=== PATIENT | female | born 1985 | race Two or more races ===

== ENCOUNTER 2021-06-14 12:10 | Outpatient (CLI) | payer BC, SELFPAY ==
--- NOTE | ~2021-06-14 | XR_ITS ---
EXAMINATION: XR lumbar spine 2-3V, XR pelvis 1-2V DATE: 06/14/2021 12:47 INDICATION: Right flank pain and iliac pain radiating down the right leg TECHNIQUE: 1. Anteroposterior and lateral views of the lumbar spine, and cone-down lateral view of the lumbosacr al junction were obtained. 2. AP view of the pelvis was obtained. COMPARISON: None. FINDINGS: Alignment is normal. Vertebral body and disc heights are normal. Lumbar facet joints are normal. Sacr um and bilateral sacroiliac joints are normal. Bilateral hip joints are normal. No suspected avascula r necrosis. Soft tissues are unremarkable. IMPRESSION: 1. Negative lumbar spine and pelvis radiographs. Reviewed, dictated and finalized at location A. ANCE LEARNING UNIT LEADER IMPRESSION: 1. Negative lumbar spine and pelvis radiographs.
[2021-06-14 12:44] LABS: Basophils Absolute Auto 0.03 K/mm3 (0.00-0.10); Basophils Percent Auto 0.4 % (0.0-1.0); Eosinophils Absolute Auto 0.06 K/mm3 (0.02-0.50); Eosinophils Percent Auto 0.8 % (1.0-6.0); Hemoglobin 13.1 g/dL (12.0-15.0); Immature Granulocyte Absolute 0.03 K/mm3 (0.00-0.00); Immature Granulocyte Percent A 0.4 % (0.0-0.0); Lymphocytes Absolute Auto 2.77 K/mm3 (1.10-4.50); Lymphocytes Percent Auto 35.3 % (18.0-42.0); Mean Corpuscular Hemoglobin 26.8 pg (27.0-31.0); Mean Platelet Volume 9.8 fl (9.2-11.8); Monocytes Absolute Auto 0.77 K/mm3 (0.10-0.90); Monocytes Percent Auto 9.8 % (2.0-11.0); Neutrophils Absolute Auto 4.2 K/mm3 (1.7-7.2); Neutrophils Percent Auto 53.3 % (50.0-70.0); Platelet Count Result 347 K/mm3 (150-420); Red Blood Count 4.88 M/mm3 (4.20-5.40); Red Cell Distribution Width 12.8 % (11.6-14.4); White Blood Count 7.9 K/mm3 (4.8-10.8)
[2021-06-14 13:14] LABS: Alanine Aminotransferase 14 U/L (14-59); Albumin Level 3.8 g/dL (3.4-5.0); Alkaline Phosphatase 47 U/L (46-116); Anion Gap 11 mmol/L (8-16); Aspartate Amino Transferase 26 U/L (15-37); Bilirubin,Total 0.2 mg/dL (0.00-1.00); Blood Urea Nitrogen 10 mg/dL (7-18); Calcium 8.7 mg/dL (8.5-10.1); Carbon Dioxide 25 mmol/L (21-32); Chloride 103 mmol/L (98-108); Estimated Glomerular Filt Rate > 60; Glucose 88 mg/dL (70-99); Osmolality Calculated 286 mOsm/kg (285-295); Potassium 4.3 mmol/L (3.5-5.1); Sodium 139 mmol/L (136-145); Total Protein 7.8 g/dL (6.4-8.2)
[2021-06-14 13:19] LABS: CRP < 0.5 mg/dL (0.0-0.9)
== END 2021-06-14 12:11 | disposition home or self-care (01) ==
PROVIDERS: PCP Internal Medicine; Visit Provider Internal Medicine
DX: R10.9 Unspecified abdominal pain (principal)
CPT/HCPCS: 36415; 72100; 72170; 80053; 85025; 86140

== ENCOUNTER 2021-06-23 07:36 | Outpatient (CLI) | payer BC, SELFPAY ==
--- NOTE | ~2021-06-23 | CT_ITS ---
EXAMINATION: CT abdomen pelvis wo con DATE: 06/23/2021 09:55 INDICATION: Right flank pain. Hematuria. TECHNIQUE: Computed tomography (CT) of the abdomen and pelvis was performed without intravenous contr ast. Automated exposure control and iterative reconstruction technique were employed. The dose-length product was 168.55 mGy-cm. COMPARISON: None. FINDINGS: The visualized portions of the lung bases are clear without pneumonia or pleural effusion. The heart size is normal. No pericardial effusion. There is an 8 mm cyst in the liver. The gallbladde r, spleen, pancreas, adrenal glands, and kidneys are normal. There are no dilated loops of bowel. The appendix is normal. There are no pathologically enlarged lymph nodes. There is no free intraperitone al fluid. There is mild lumbar spondylosis. IMPRESSION: 1. No urolithiasis. Reviewed, dictated and finalized at location A. EMS INTEGRATION ENGINEER IMPRESSION: 1. No urolithiasis.
[2021-06-23 09:46] LABS: SARS-CoV-2 RNA PCR Negative (Negative)
== END 2021-06-23 07:37 | disposition home or self-care (01) ==
PROVIDERS: PCP Internal Medicine; Visit Provider Internal Medicine
DX: R10.9 Unspecified abdominal pain (principal); R31.9 Hematuria, unspecified; Z20.822 Contact with and (suspected) exposure to COVID-19
CPT/HCPCS: 74176; C9803; U0003; U0005

== ENCOUNTER 2022-02-02 10:38 | Outpatient (CLI) | payer OTHER, SELFPAY ==
--- NOTE | ~2022-02-02 | US_ITS ---
EXAMINATION: US pelvic complete DATE: 02/02/2022 11:06 INDICATION: Right lower quadrant pain. Back pain. Comparison:No prior studies for comparison. TECHNIQUE: Multiple transabdominal and endovaginal sonographic images of the pelvis performed. FINDINGS: The uterus measures 7.3 x 4.6 x4 cm. The endometrial complex measures 7 mm. The right ovary measures 3.5 x 1.5 x 4.2 cm and the left ovary measures 3.5 x 2.6 x 1.8 cm. There ar e small follicles in each ovary. Normal doppler signal in both ovaries. There is no free fluid in the pelvis. There are no abnormal masses seen on either side. IMPRESSION: 1. Unremarkable pelvic ultrasound. Reviewed, dictated and finalized at location A.
--- NOTE | ~2022-02-02 | XR_ITS ---
XR shoulder RT min 2V DATE: 02/02/2022 11:19 INDICATION: Right shoulder pain for 6 months. No known injury. TECHNIQUE: 4 views COMPARISON: None FINDINGS: No fracture or dislocation, periosteal reaction or bone destruction or abnormal soft tissue calcification. IMPRESSION: Negative right shoulder Reviewed, dictated and finalized at location A. IMPRESSION: Negative right shoulder
--- NOTE | ~2022-02-02 | XR_ITS ---
XR_CERV2-3V_CR 02/02/2022 11:19 Indication: Right shoulder pain Procedure: 3 views of the cervical spine Comparison: No prior studies for comparison. Findings: Vertebral body heights are preserved. There is mild disc narrowing at C5-6. No prevertebral soft tissue swelling. There is mild uncinate degenerative change at C4-5 and C5-6. Lung apices are u nremarkable. Odontoid process within normal limits. Impression: 1: Mild cervical spondylosis. Reviewed, dictated and finalized at location A. Impression: 1: Mild cervical spondylosis.
== END 2022-02-02 10:39 | disposition home or self-care (01) ==
LOC: CHSIMG 10:39
PROVIDERS: PCP Internal Medicine; Visit Provider Internal Medicine
DX: N83.201 Unspecified ovarian cyst, right side (principal); M25.511 Pain in right shoulder
CPT/HCPCS: 72040; 73030; 76856

== ENCOUNTER 2023-03-09 14:09 | Outpatient (CLI) | payer BC, SELFPAY ==
[2023-03-09 14:28] LABS: Basophils Absolute Auto 0.03 K/mm3 (0.00-0.10); Basophils Percent Auto 0.3 % (0.0-1.0); Eosinophils Absolute Auto 0.03 K/mm3 (0.02-0.50); Eosinophils Percent Auto 0.3 % (1.0-6.0); Hemoglobin 12.1 g/dL (12.0-15.0); Immature Granulocyte Absolute 0.05 K/mm3 (0.00-0.00); Immature Granulocyte Percent A 0.5 % (0.0-0.0); Lymphocytes Absolute Auto 2.69 K/mm3 (1.10-4.50); Lymphocytes Percent Auto 25.8 % (18.0-42.0); Mean Corpuscular HGB Conc 33.6 g/dL (32.0-36.0); Mean Corpuscular Hemoglobin 27.9 pg (27.0-31.0); Mean Corpuscular Volume 82.9 fL (78.0-102.0); Mean Platelet Volume 9.8 fl (9.2-11.8); Monocytes Absolute Auto 0.76 K/mm3 (0.10-0.90); Monocytes Percent Auto 7.3 % (2.0-11.0); Neutrophils Absolute Auto 6.9 K/mm3 (1.7-7.2); Neutrophils Percent Auto 65.8 % (50.0-70.0); Platelet Count Result 337 K/mm3 (150-420); Red Blood Count 4.34 M/mm3 (4.20-5.40); White Blood Count 10.4 K/mm3 (4.8-10.8)
[2023-03-09 17:27] LABS: HIV 1 P24 AG Negative (Negative); HIV 1/2 AB Negative (Negative)
[2023-03-13 15:49] LABS: RPR Screen Non-Reactive (Non-Reactive)
[2023-03-13 18:11] LABS: Hepatitis B Surface Antigen Nonreactive (Nonreactive)
[2023-03-14 18:01] LABS: Rubella IgG Antibody 7.12 Index
[2023-03-21 13:01] LABS: CF Result NEGATIVE (NEGATIVE); Ethnicity NG
[2023-03-22 15:36] LABS: SMA Results Received Yes
== END 2023-03-09 14:10 | disposition home or self-care (01) ==
LOC: CHSLAB 14:10
PROVIDERS: PCP Internal Medicine; Visit Provider Student in an Organized Health Care Education/Training Program
DX: N94.89 Other specified conditions associated with female genital organs and menstrual cycle (principal); R82.90 Unspecified abnormal findings in urine
CPT/HCPCS: 36415; 81220; 81329; 84702; 85025; 86592; 86644; 86747; 86762; 86787; 86850; 86900; 86901; 87077; 87086; 87088; 87186; 87340; 87806

== ENCOUNTER 2023-08-03 07:23 | Outpatient (CLI) | payer BC, SELFPAY ==
[2023-08-03 08:34] LABS: Basophils Absolute Auto 0.04 K/mm3 (0.00-0.10); Basophils Percent Auto 0.4 % (0.0-1.0); Eosinophils Absolute Auto 0.02 K/mm3 (0.02-0.50); Eosinophils Percent Auto 0.2 % (1.0-6.0); Hematocrit 32.7 % (35.0-49.0); Hemoglobin 10.4 g/dL (12.0-15.0); Immature Granulocyte Absolute 0.21 K/mm3 (0.00-0.00); Lymphocytes Absolute Auto 1.78 K/mm3 (1.10-4.50); Lymphocytes Percent Auto 16.9 % (18.0-42.0); Mean Corpuscular HGB Conc 31.8 g/dL (32.0-36.0); Mean Corpuscular Hemoglobin 25.6 pg (27.0-31.0); Mean Corpuscular Volume 80.5 fL (78.0-102.0); Mean Platelet Volume 9.9 fl (9.2-11.8); Monocytes Absolute Auto 0.74 K/mm3 (0.10-0.90); Neutrophils Absolute Auto 7.8 K/mm3 (1.7-7.2); Neutrophils Percent Auto 73.5 % (50.0-70.0); Platelet Count Result 282 K/mm3 (150-420); Red Blood Count 4.06 M/mm3 (4.20-5.40); Red Cell Distribution Width 13.9 % (11.6-14.4); White Blood Count 10.6 K/mm3 (4.8-10.8)
[2023-08-03 09:49] LABS: Glucose 1 Hour PP 50gm Dose 157 mg/dL (70-130); HIV 1 P24 AG Negative (Negative); HIV 1/2 AB Negative (Negative)
== END 2023-08-03 07:24 | disposition home or self-care (01) ==
PROVIDERS: PCP Internal Medicine; Visit Provider Obstetrics & Gynecology
DX: Z34.90 Encounter for supervision of normal pregnancy, unspecified, unspecified trimester (principal)
CPT/HCPCS: 36415; 82947; 85025; 87806

== ENCOUNTER 2023-08-13 07:28 | Outpatient (CLI) | payer BC, SELFPAY ==
[2023-08-13 08:07] LABS: Glucose Fasting Gestational 80 mg/dL (>/=95)
[2023-08-13 09:13] LABS: Glucose 1 Hour Gest 182 mg/dL (70-130)
[2023-08-13 09:59] LABS: Glucose 2 Hour Gest 174 mg/dL (<155)
[2023-08-13 11:11] LABS: Glucose 3 Hour Gest 159 mg/dL (>/=140)
== END 2023-08-13 07:29 | disposition home or self-care (01) ==
LOC: CHSLAB 07:30
PROVIDERS: PCP Internal Medicine; Visit Provider Obstetrics & Gynecology
DX: R73.09 Other abnormal glucose (principal)
CPT/HCPCS: 36415; 82951; 82952

== ENCOUNTER 2023-09-11 17:55 | Outpatient (CLI) | payer BC, SELFPAY ==
[2023-09-11] VITALS (15 sets, daily range): BP systolic 124–140; BP diastolic 75–82; PULSE 58–72; O2SAT 98–100; BMI 27.3
[2023-09-11 18:33] LABS: Basophils Percent Auto 0.4 % (0.2-1.2); Eosinophils Absolute Auto 0.1 K/mm3 (0-0.3); Eosinophils Percent Auto 0.6 % (0-4.4); Hematocrit 34.5 % (37.0-47.0); Hemoglobin 10.6 g/dL (12.0-15.0); Immature Granulocyte Percent A 0.9 % (0-0.5); Lymphocytes Absolute Auto 1.95 K/mm3 (0.9-3.2); Lymphocytes Percent Auto 17.4 % (18.3-44.2); Mean Corpuscular HGB Conc 30.7 g/dl (32-36); Mean Corpuscular Volume 78.1 fl (80-100); Mean Platelet Volume 11.1 fl (7.4-10.4); Monocytes Absolute Auto 0.8 K/mm3 (0.1-0.6); Monocytes Percent Auto 7.3 % (2.6-8.5); Neutrophils Absolute Auto 8.2 K/mm3 (1.3-6.7); Neutrophils Percent Auto 73.4 % (45.5-73.1); Platelet Count Result 233 k/mm3 (150-375); Red Blood Count 4.42 M/mm3 (4.2-5.4); Red Cell Distribution Width 15.2 % (11.5-14.5); White Blood Count 11.2 K/mm3 (4.5-10.0)
[2023-09-11 18:44] LABS: Alanine Aminotransferase 14 U/L (6-35); Albumin Level 3.3 g/dL (3.5-5.1); Alkaline Phosphatase 183 U/L (38-126); Anion Gap 6 mmol/L (8-16); Aspartate Amino Transferase 20 U/L (14-36); Bilirubin,Total 0.2 mg/dL (0.2-1.3); Blood Urea Nitrogen 7 mg/dL (7-17); Calcium 8.3 mg/dL (8.4-10.2); Carbon Dioxide 20 mmol/L (22-30); Chloride 108 mmol/L (98-107); Estimated Glomerular Filt Rate > 60; Glucose 103 mg/dL (65-110); Potassium 4.2 mmol/L (3.4-5.0); Sodium 134 mmol/L (137-145); Uric Acid 4.5 mg/dL (2.5-7.5)
[2023-09-11 18:47] LABS: Creatinine Urine 148.5 mg/dL; Total Protein Urine Random 71 mg/dL; Ur Ttl Prot Creatinine Ratio 0.48 mg/mg (0-0.20)
[2023-09-11 18:53] LABS: Appearance Urine Turbid (Clear); Bacteria Urine 4+ /hpf; Bilirubin Urine Negative (Negative); Blood Urine 1+ (Negative); Color Urine Yellow (Yellow); Glucose Urine UA Negative (Negative); Ketones Urine Negative (Negative); Leukocyte Esterase Ur 2+ LEU/UL (Negative); Need Manual Microscopic Reviewed; Nitrate Urine Negative (Negative); Protein Urine 2+ mg/dL (Negative); Squamous Epithelial Cell Urine Many /hpf (Few); Urobilinogen Urine 0.2 mg/dL (<2.0); WBC Urine >100 /hpf; pH Urine 6.5 (5.0-9.0)
[2023-09-11 18:55] LABS: Add Urine Microscopic? YES
--- NOTE | 2023-09-11 19:16 | PC.NURSE ---
Called Dr. Acevedo with update on pt, blood pressure, labs, and tracing. Orders received to schedule induction at 37 weeks and discharge pt with instructions when to return to the unit.
--- NOTE | 2023-09-11 19:30 | PC.NURSE ---
Discussed whether to keep next scheduled NST tomorrow, orders received to schedule NST Saturday or Saturday of this week.
== END 2023-09-11 19:36 | disposition home or self-care (01) ==
LOC: ANHOBOP 17:58 → ANHOBPP 17:58
PROVIDERS: PCP Internal Medicine; Visit Provider Obstetrics & Gynecology
DX: O13.9 Gestational [pregnancy-induced] hypertension without significant proteinuria, unspecified trimester (principal)
CPT/HCPCS: 36415; 59025; 80053; 81001; 82570; 84156; 84550; 85025; 87086; 99199

== ENCOUNTER 2023-09-14 10:27 | Outpatient (RCR) | payer BC, SELFPAY ==
[2023-08-19 11:20] VITALS: BP 120/71; PULSE 75
[2023-08-22 09:02] VITALS: BP 109/73; PULSE 80
[2023-08-27 10:08] VITALS: BP 113/79; PULSE 72
[2023-08-30 11:41] VITALS: BP 131/82; PULSE 75
[2023-09-03 16:27] VITALS: BP 130/81; PULSE 79
[2023-09-05 15:57] VITALS: BP 126/87; PULSE 75
[2023-09-09 15:54] VITALS: BP 129/86; PULSE 70
[2023-09-14 11:06] VITALS: BP 132/80; PULSE 71
== END 2023-11-17 23:59 | disposition home or self-care (01) ==
LOC: ANHOBOP 10:27
PROVIDERS: PCP Internal Medicine; Visit Provider Obstetrics & Gynecology
DX: O24.410 Gestational diabetes mellitus in pregnancy, diet controlled (principal); Z3A.33 33 weeks gestation of pregnancy; Z3A.34 34 weeks gestation of pregnancy; Z3A.35 35 weeks gestation of pregnancy; Z3A.36 36 weeks gestation of pregnancy
CPT/HCPCS: 59025

== ENCOUNTER 2023-09-16 16:54 | Inpatient (IN) | payer BC, SELFPAY ==
[2023-09-16] VITALS (15 sets, daily range): BP systolic 106–171; BP diastolic 69–98; PULSE 60–92; TEMP 36.4; BMI 27.3
[2023-09-16 17:50] LABS: Basophils Percent Auto 0.4 % (0.2-1.2); Eosinophils Percent Auto 0.3 % (0-4.4); Hematocrit 32.4 % (37.0-47.0); Immature Granulocyte Absolute 0.19 K/mm3 (0.00-0.031); Immature Granulocyte Percent A 1.9 % (0-0.5); Lymphocytes Absolute Auto 1.67 K/mm3 (0.9-3.2); Lymphocytes Percent Auto 16.5 % (18.3-44.2); Mean Corpuscular HGB Conc 30.9 g/dl (32-36); Mean Corpuscular Hemoglobin 24.2 pg (26-34); Mean Corpuscular Volume 78.5 fl (80-100); Mean Platelet Volume 11.6 fl (7.4-10.4); Monocytes Absolute Auto 1.1 K/mm3 (0.1-0.6); Monocytes Percent Auto 10.4 % (2.6-8.5); Neutrophils Absolute Auto 7.2 K/mm3 (1.3-6.7); Neutrophils Percent Auto 70.5 % (45.5-73.1); Nucleated Red Blood Cells Perc 0.3 % (0.0-0.2); Platelet Count Result 221 k/mm3 (150-375); Red Blood Count 4.13 M/mm3 (4.2-5.4); Red Cell Distribution Width 15.9 % (11.5-14.5); White Blood Count 10.2 K/mm3 (4.5-10.0)
[2023-09-16] MEDS: DINOPROSTONE 10 MG VAG INSERT VAGINAL (17:51)
--- NOTE | 2023-09-16 17:57 | LDADM ---
This patient, Alis Adan, was admitted to Labor/Delivery/Recovery 108 on 09/16/23 at 16:54. Plans for labor, pain management and were discussed with patient. Patient/family oriented to hospital policies and general routines including ID bracelet, bed and alarms, visiting hours, pain management, procedures, bathroom and other care routines, personal items, smoking policy, room service/diet and guest tray routines, security routines, and visiting hours. Patient/Family are encouraged to report perceived risks to care and to ask questions if they do not understand what they are told or what they should do. See OBIX for further documentation.
[2023-09-16 18:09] LABS: Alanine Aminotransferase 12 U/L (6-35); Albumin Level 2.9 g/dL (3.5-5.1); Alkaline Phosphatase 176 U/L (38-126); Anion Gap 7 mmol/L (8-16); Aspartate Amino Transferase 18 U/L (14-36); Bilirubin,Total 0.2 mg/dL (0.2-1.3); Blood Urea Nitrogen 8 mg/dL (7-17); Calcium 7.8 mg/dL (8.4-10.2); Carbon Dioxide 15 mmol/L (22-30); Chloride 113 mmol/L (98-107); Estimated CRCL calculation 99 ml/min; Estimated Glomerular Filt Rate > 60; Glucose 100 mg/dL (65-110); Potassium 3.6 mmol/L (3.4-5.0); Sodium 135 mmol/L (137-145); Uric Acid 4.1 mg/dL (2.5-7.5)
--- NOTE | 2023-09-16 18:15 | WPDANESEPP ---
Anes - Eval Pre Procedure Procedure: Labor epidural Date/Time: 09/16/23 18:15 Surgeon: Curtis Preop Diagnosis: Abdominal pain with contractions Pre Op Diagnosis: Induction of Labor Patient Data Age: 38 Gender: F Height: 1.6 m Weight: 70 kg Last Vital Signs Pulse 70 09/16/23 18:01 BP 154/98 H 09/16/23 18:01 O2 Del Method Room Air 09/16/23 17:57 Allergies Allergy/AdvReac Type Severity Reaction Status Date / Time norfloxacin Allergy Mild Hives / Verified 09/11/23 19:48 Red Face Home Medications Medication Instructions Recorded Confirmed Type vits no.126-ferrous fum 1 tablet PO DAILY 04/02/23 09/16/23 History 28 mg iron-folic acid 800 mcg tablet (Classic ) aspirin 81 mg tablet,delayed 81 mg PO DAILY 05/02/23 09/16/23 History release (Adult Low Dose Aspirin) Laboratory Tests 09/16/23 09/16/23 17:35 17:53 WBC 10.2 H K/mm3 (4.5-10.0) RBC 4.13 L M/mm3 (4.2-5.4) Hgb 10.0 L g/dL (12.0-15.0) Hct 32.4 L % (37.0-47.0) MCV 78.5 L fl (80-100) MCH 24.2 L pg (26-34) MCHC 30.9 L g/dl (32-36) RDW 15.9 H % (11.5-14.5) Plt Count 221 k/mm3 (150-375) MPV 11.6 H fl (7.4-10.4) Immature Gran % (Auto) 1.9 H % (0-0.5) Neut % (Auto) 70.5 % (45.5-73.1) Lymph % (Auto) 16.5 L % (18.3-44.2) Redwood % (Auto) 10.4 H % (2.6-8.5) Eos % (Auto) 0.3 % (0-4.4) Baso % (Auto) 0.4 % (0.2-1.2) Lymph # (Auto) 1.67 K/mm3 (0.9-3.2) Redwood # (Auto) 1.1 H K/mm3 (0.1-0.6) Eos # (Auto) 0.0 K/mm3 (0-0.3) Baso # (Auto) 0.0 K/mm3 (0.0-0.1) Abs Immat Gran (auto) 0.19 H K/mm3 (0.00-0.031) Absolute Neuts (auto) 7.2 H K/mm3 (1.3-6.7) Absolute Nucleated RBC 0.0 K/mm3 (0.0-0.012) Nucleated RBC % 0.3 H % (0.0-0.2) Sodium 135 L mmol/L (137-145) Potassium 3.6 mmol/L (3.4-5.0) Chloride 113 H mmol/L (98-107) Carbon Dioxide 15 L mmol/L (22-30) Anion Gap 7 L mmol/L (8-16) BUN 8 mg/dL (7-17) Creatinine 0.60 L mg/dL (0.7-1.0) Estim Creat Clear Calc 99 ml/min Estimated GFR > 60 (59 - ) Glucose 100 mg/dL (65-110) Uric Acid 4.1 mg/dL (2.5-7.5) Calcium 7.8 L mg/dL (8.4-10.2) Total Bilirubin 0.2 mg/dL (0.2-1.3) AST 18 U/L (14-36) ALT 12 U/L (6-35) Alkaline Phosphatase 176 H U/L (38-126) Total Protein 6.0 L g/dL (6.3-8.2) Albumin 2.9 L g/dL (3.5-5.1) : gestational age HCG: positive Patient hx anesthesia problems: none Family hx anesthesia problems: none Results Review: All pre-operative results and documents have been reviewed as part of the pre-operative evaluation. [facility] Past Medical History Medical History (Updated 09/16/23 @ 18:16 by Bishnu Chen CRNA) AMA (advanced maternal age) primigravida 35+ Blood glucose abnormal Diet controlled gestational diabetes mellitus (GDM) Overweight (BMI 25.0-29.9) Pre-eclampsia Suppression of menses Family History Family History Father Acute myocardial infarction Social History Social History Smoking status: Never smoker Alcohol intake: former Substance use: never Do You Feel Safe in your Home?: Yes Lack of Transportation: No Lack of Food: Never True Current Housing: I Have Housing Concerned About Future Housing: No Difficulty Paying Gas/Electric Bills: No Difficulty Paying for Meds: No Currently Unemployed: No Education: High School Diploma/GED Difficulty w/ Childcare or Family Care: No Living arrangements: with family Gender identity (if verbalized by the patient): Female Sexual Orientation (if Verbalized by the Patient): Straight or Heterosexual
[2023-09-16 22:05] LABS: Glucose Point of Care 114 mg/dl (65-105)
[2023-09-17] VITALS (227 sets, daily range): BP systolic 85–165; BP diastolic 48–128; PULSE 50–138; RESP 18; TEMP 36.1–37.9; O2SAT 79–100
[2023-09-17 02:19] LABS: Glucose Point of Care 78 mg/dl (65-105)
[2023-09-17] MEDS: ACETAMINOPHEN 500 MG TABLET 1000 MG PO ×3 (02:29→20:10)
[2023-09-17 06:11] LABS: Glucose Point of Care 76 mg/dl (65-105)
[2023-09-17] MEDS: LACTATED RINGERS 1,000 ML 125 ML IV CONT ×2 (06:55→08:10)
[2023-09-17] MEDS: OXYTOCIN 30 UNITS/NS 500 ML 30 UNITS/500 ML BAG 6 UNITS IV CONT (06:55)
--- NOTE | 2023-09-17 07:33 | PM.IMHP ---
H&P: HPI History of Present Illness Date/Time: 09/16/23 13:42 Chief Complaint: medical induction Narrative: Alis is a 38yo @ 37.1wks who presents for medical IOL due to newly diagnosed pre-eclampsia without severe features. She has been undergoing ANT and following with MFM as well. She reports good movement. Irregular contractions. No VB or LOF. Her is complicated by: - AMA; NIPT LR, male; on ASA - A1GDM - Pre-eclampsia w/o severe features Review of Systems Constitutional: Constitutional: Denies chills, Denies fever(s) and Reports headache(s) Eyes: Eyes: Denies change in vision ENT: Denies headache(s) Cardiovascular: Cardiovascular: Denies chest pain and Denies dyspnea Respiratory: Respiratory: Denies dyspnea Genitourinary: Genitourinary: Denies abnormal vaginal bleeding and Denies vaginal discharge Neurologic: Denies headache(s) Psychiatric: Psychiatric: Denies anxiety and Denies depression [facility] Past Medical History Medical History (Updated 09/16/23 @ 18:16 by Bishnu Chen CRNA) AMA (advanced maternal age) primigravida 35+ Blood glucose abnormal Diet controlled gestational diabetes mellitus (GDM) Overweight (BMI 25.0-29.9) Pre-eclampsia Suppression of menses Family History Family History Father Acute myocardial infarction Social History Social History Smoking status: Never smoker Alcohol intake: former Substance use: never Do You Feel Safe in your Home?: Yes Lack of Transportation: No Lack of Food: Never True Current Housing: I Have Housing Concerned About Future Housing: No Difficulty Paying Gas/Electric Bills: No Difficulty Paying for Meds: No Currently Unemployed: No Education: High School Diploma/GED Difficulty w/ Childcare or Family Care: No Living arrangements: with family Gender identity (if verbalized by the patient): Female Sexual Orientation (if Verbalized by the Patient): Straight or Heterosexual Spiritual care concerns: No Meds Home Medications and Allergies Home Medications Medication Instructions Recorded Confirmed Type vits no.126-ferrous fum 1 tablet PO DAILY 04/02/23 09/16/23 History 28 mg iron-folic acid 800 mcg tablet (Classic ) aspirin 81 mg tablet,delayed 81 mg PO DAILY 05/02/23 09/16/23 History release (Adult Low Dose Aspirin) Allergies Allergy/AdvReac Type Severity Reaction Status Date / Time norfloxacin Allergy Mild Hives / Verified 09/11/23 19:48 Red Face Exam Const: General: cooperative, healthy appearing, comfortable and no acute distress Orientation/consciousness: patient oriented x3 Resp: Effort & Inspection: normal respiratory effort Cardio: Rate: regular rate GI: GI Palp: No abdominal tenderness : Other: FHT's: 140's/ mod varghese/ + accels/ occ mild variable decels - cat 2 (reassuring) TOCO: ctxs q3 min Cervix: 2/50/-2 Membranes: AROM, clear 0715 Presentation: cephalic Skin: General skin exam: normal color Neuro: General: patient oriented x3 Extrem: General: normal to inspection Psych: Appearance: grossly normal Affect: normal affect Attitude: cooperative Assessment and Plan Assessment and plan (1) Pre-eclampsia: Qualifiers: Trimester: third trimester Qualified Code(s): O14.93 - Unspecified pre-eclampsia, third trimester Code(s): O14.90 - Unspecified pre-eclampsia, unspecified trimester Status: Acute (2) Diet controlled gestational diabetes mellitus (GDM): Qualifiers: Trimester: third trimester Qualified Code(s): O24.410 - Gestational diabetes mellitus in , diet controlled Code(s): O24.410 - Gestational diabetes mellitus in , diet controlled Status: Acute (3) AMA (advanced maternal age) primigravida 35+: Qualifiers: Tri
[2023-09-17] MEDS: fentaNYL CITRATE INJ (*CRX) 100 MCG/2 ML VIAL IV PUSH (07:45)
[2023-09-17 10:13] LABS: Glucose Point of Care 85 mg/dl (65-105)
--- NOTE | 2023-09-17 11:50 | PM.OBPNLAB ---
Pain Control Date/time seen: 09/17/23 11:50 Pain control: epidural Pelvic Exam Dilation (cm): 5 Effacement (%): 90 station: -2 Amniotic membrane status: Ruptured (AROM, 0715) Contractions Monitor mode: Internal (placed on this exam) Contraction frequency: 2 Contraction pattern: Regular Status status: Category ll Comments: occasional variables; iupc placed on this exam Assessment and Plan Pitocin rate (mU/min): 12 Assessment: induction ongoing Plan: continuous present management Comments: BPs in moderate range; asymptomatic BS controlled Amnio-infusion if variables persist
[2023-09-17 13:22] LABS: Strep Group A RT-PCR NOT DETECTED (Negative)
[2023-09-17 13:34] LABS: Influenza A QL RT-PCR Negative (Negative); Influenza B QL RT-PCR Negative (Negative); SARS-CoV-2 RNA PCR Positive (Negative)
[2023-09-17 14:40] LABS: Rapid Plasma Reagin Non-Reactive (NonReactive)
[2023-09-17 14:46] LABS: Glucose Point of Care 73 mg/dl (65-105)
[2023-09-17] MEDS: DEXTROSE 5%/LACTATED RINGERS 1,000 ML 125 ML (17:20)
--- NOTE | 2023-09-17 17:54 | P.PCNOB_ITS ---
OB - Vaginal Delivery Note Procedure Delivery date: 09/17/23 Events: Gestational Diabetes, Preeclampsia w/o severe features and Other (AMA, COVID) Induction method: Per Misoprostol Protocol Delivery augmentation: Rupture of Membranes and Pitocin Delivery monitor: External FHT and Internal Uterine Route of delivery: vacuum extraction Indication for instrumentation: maternal exhaustion (and severe variables) Laceration Description: Perineal - 1st Degree Delivery repair: vicryl Specimen: Yes (placenta) Quantitative Blood Loss (ml): 300 Anesthesia type: Epidural Disposition: Floor Complications: No immediate complications Baby Date of : 09/17/23 Time of : 17:32 Weeks of gestation at delivery: 37 (.1) gender: Male Weight (pounds): 5 Weight (ounces): 14 presentation: vertex position: Right Occiput Anterior Placenta delivery description: Expressed Cord Vessel Description: 3 Vessels score one minute: 7 score five minutes: 9 Narrative: Alis rapidly progressed to complete dilation and began pushing with good maternal effort. She pushed for approximately 2-1/2 hours and due to maternal exhaustion requested help with delivery. Her blood sugar was also checked at this time and was found to be 55; she was given juice and started on D5 and felt better, but continued to ask for help with delivery. He was also noted to have severe variables with every contraction. She was at 2+ station and risks and benefits were discussed in detail. She agreed and the pediatric team was present in the room. The vacuum was placed at 5:23 p.m., at 5:24 p.m. 1 pull was performed; when she was done pushing the vacuum was released. At 5:26 p.m. the vacuum was once again applied and a pop-off did occur. The head had noted to rotate and had good descent therefore I had her push a couple more cont ractions. At 5:32 p.m. the vacuum was once again applied and the next pull resulted in delivery. No nuchal cord was noted. She easily delivered the 's shoulders and body without complication. The infant did have terminal meconium. The was immediately placed skin to skin and the umbilical cord was doubly clamped and cut. The pediatric team did take the over to the warmer for further intervention and assessment. A segment of the cord was collected for cord gases. The family desired private cord blood collection and that was performed. With Pitocin running and gentle downward traction on the cord, the placenta delivered without complications. Bimanual massage was performed and good uterine tone with minimal bleeding was noted. She was examined and a first-degree perineal laceration was identified. The perineal laceration was repaired in the normal fashion using 2-0 Vicryl. She remained firm with minimal bleeding. Sponge, lap, instrument, and needle counts were correct at the end of the procedure. The infant was taken to the nursery for further assessment. Mom was in the delivery suite in a stable condition. [facility] Delivery Billing Delivery Delivery: Delivery Charge
[2023-09-17 18:13] LABS: Glucose Point of Care 85 mg/dl (65-105)
[2023-09-17 18:13] LABS: Glucose Point of Care 55 mg/dl (65-105)
[2023-09-17] MEDS: OXYTOCIN 30 UNITS/NS 500 ML 30 UNITS/500 ML BAG 125 UNITS IV CONT (18:30)
--- NOTE | 2023-09-17 20:04 | PC.NURSE ---
Patient transferred to post room #280 via wheelchair. Support person present. Oriented to unit, room, information board, rooming in, admission packet and security measures. Patient verbalizes understanding.
[2023-09-17] MEDS: IBUPROFEN 600 MG TABLET PO (23:15)
[2023-09-18] MEDS: WITCH HAZEL 40 PADS 1 PAD TOPICAL (03:06)
[2023-09-18] MEDS: BENZOCAINE 20% AER SPR (*SP) 56 GM CAN 1 SPRAY TOPICAL (03:06)
[2023-09-18 05:00] VITALS: BP 130/82; PULSE 72; RESP 16; TEMP 36.7; O2SAT 100
[2023-09-18 05:24] LABS: Hematocrit 30.5 % (37.0-47.0); Hemoglobin 9.3 g/dL (12.0-15.0); Mean Corpuscular HGB Conc 30.5 g/dl (32-36); Mean Corpuscular Hemoglobin 24.4 pg (26-34); Mean Corpuscular Volume 80.1 fl (80-100); Mean Platelet Volume 11.8 fl (7.4-10.4); Platelet Count Result 204 k/mm3 (150-375); Red Blood Count 3.81 M/mm3 (4.2-5.4); White Blood Count 19.9 K/mm3 (4.5-10.0)
[2023-09-18 05:34] LABS: Alanine Aminotransferase 20 U/L (6-35); Albumin Level 2.6 g/dL (3.5-5.1); Alkaline Phosphatase 138 U/L (38-126); Anion Gap 4 mmol/L (8-16); Aspartate Amino Transferase 52 U/L (14-36); Bilirubin,Total 0.3 mg/dL (0.2-1.3); Blood Urea Nitrogen 8 mg/dL (7-17); Calcium 7.6 mg/dL (8.4-10.2); Carbon Dioxide 18 mmol/L (22-30); Chloride 106 mmol/L (98-107); Estimated CRCL calculation 76 ml/min; Estimated Glomerular Filt Rate > 60; Glucose 66 mg/dL (65-110); Potassium 3.6 mmol/L (3.4-5.0); Sodium 128 mmol/L (137-145)
--- NOTE | 2023-09-18 06:33 | PM.OBPNVD ---
OB - PN: Subj Subjective Date/time seen: 09/18/23 06:33 Narrative: PPD#1 Alis reports doing ok today-- feeling achy/sore, congestion/sore throat/sinus pain. Her bleeding is director oncology. Her pain is controlled. She is tolerating regular diet, voiding, passing gas, and ambulating without issues. She is pumping/supplementing. She would like her son circumcised-- but he's currently on D10 so will wait until tomorrow. OB - PN: Obj Data Labs 09/18/23 05:04 09/18/23 05:04 Labs: Laboratory Results - last 24 hr 09/16/23 09/17/23 09/17/23 17:34 10:03 12:40 WBC RBC Hgb Hct MCV MCH MCHC RDW Plt Count MPV Sodium Potassium Chloride Carbon Dioxide Anion Gap BUN Creatinine Estim Creat Clear Calc Estimated GFR Glucose POC Capillary Glucose 85 Calcium Total Bilirubin AST ALT Alkaline Phosphatase Total Protein Albumin RPR Non-reactive Influenza A (RT-PCR) Negative Influenza B (RT-PCR) Negative SARS-CoV-2 RNA (RT-PCR) Positive A Group A Strep (PCR) Not detected 09/17/23 09/17/23 09/17/23 14:05 17:07 18:11 WBC RBC Hgb Hct MCV MCH MCHC RDW Plt Count MPV Sodium Potassium Chloride Carbon Dioxide Anion Gap BUN Creatinine Estim Creat Clear Calc Estimated GFR Glucose POC Capillary Glucose 73 55 L* 85 Calcium Total Bilirubin AST ALT Alkaline Phosphatase Total Protein Albumin RPR Influenza A (RT-PCR) Influenza B (RT-PCR) SARS-CoV-2 RNA (RT-PCR) Group A Strep (PCR) 09/18/23 05:04 WBC 19.9 H RBC 3.81 L Hgb 9.3 L Hct 30.5 L MCV 80.1 MCH 24.4 L MCHC 30.5 L RDW 16.0 H Plt Count 204 MPV 11.8 H Sodium 128 L Potassium 3.6 Chloride 106 Carbon Dioxide 18 L Anion Gap 4 L BUN 8 Creatinine 0.80 Estim Creat Clear Calc 76 Estimated GFR > 60 Glucose 66 POC Capillary Glucose Calcium 7.6 L Total Bilirubin 0.3 AST 52 H ALT 20 Alkaline Phosphatase 138 H Total Protein 5.0 L Albumin 2.6 L RPR Influenza A (RT-PCR) Influenza B (RT-PCR) SARS-CoV-2 RNA (RT-PCR) Group A Strep (PCR) OB - PN A/P Assessment and Plan (1) Vacuum-assisted vaginal delivery: Code(s): Z37.9 - Outcome of delivery, unspecified Status: Acute (2) COVID-19 virus infection: Code(s): U07.1 - COVID-19 Status: Acute (3) Pre-eclampsia: Qualifiers: Trimester: third trimester Qualified Code(s): O14.93 - Unspecified pre-eclampsia, third trimester Code(s): O14.90 - Unspecified pre-eclampsia, unspecified trimester Status: Acute Plan day: 1 Plan: routine care Comments: - continue po pain meds, ok to take cold medicine/saline spray - regular diet - BPs in normal to mild range; asymptomatic, labs stable Time Spent With Patient Time: Total time spent is greater than 50% in coordination of care (as documented) at patient's floor/unit and/or counseling patient: Review of Systems Constitutional: Constitutional: Denies chills, Denies fever(s) and Denies headache(s) Eyes: Eyes: Denies change in vision ENT: Denies dizziness and Denies headache(s) Cardiovascular: Cardiovascular: Denies chest pain, Denies palpitations and Denies dyspnea Respiratory: Respiratory: Denies cough and Denies dyspnea Gastrointestinal: Gastrointestinal: Denies nausea and Denies vomiting Neurologic: Denies dizziness and Denies headache(s) Endocrine: Endocrine: Denies palpitations Exam Const: General: cooperative, comfortable and no acute distress Orientation/consciousness: patient oriented x3 Resp: Effort & Inspection: normal respiratory effort Auscultation: clear to auscultation bilaterally Cardio: Rate: regular rate GI: Inspection: non-distended GI Palp: No abdominal tenderness and Yes So
[2023-09-18] MEDS: IBUPROFEN 600 MG TABLET PO ×3 (08:53→21:47)
[2023-09-18] MEDS: DOCUSATE SODIUM 100 MG CAPSULE PO ×2 (08:54→16:13)
[2023-09-18] MEDS: MULTIVIT/MIN/PREN/FOL AC/IRON TABLET 1 TAB PO (08:54)
[2023-09-18] MEDS: POLYSACCHARIDE IRON COMPLEX 150 MG CAPSULE PO ×2 (08:54→16:12)
[2023-09-18] MEDS: guaiFENesin 12 HR 600 MG TABCR PO ×2 (08:55→21:47)
[2023-09-18] MEDS: SALINE 0.65% NAS SOLN 44 ML BTL 1 SPRAY NASAL (08:55)
[2023-09-18 09:00] VITALS: BP 139/87; PULSE 80; RESP 18; TEMP 36.7; O2SAT 100
--- NOTE | 2023-09-18 10:18 | PC.NURSE ---
0807-Upon RN entering room to do blood sugar check on baby, mother stated that she had already fed baby a bottle and stated that she thought Dr. Aguilar had done the baby's blood sugar check prior to this feeding. RN reminded parents to call before baby needs to eat again for blood sugar check.
[2023-09-18 12:00] VITALS: BP 132/85; PULSE 75; RESP 16; TEMP 36.7; O2SAT 100
--- NOTE | 2023-09-18 15:01 | PC.NURSE ---
[id number] Report received this A.M. that mother was bottle feeding and going to pump, however; she is pumping inconsistently. mother has COVID and has not been feeling well. At 1415, Primary RN reported that father of baby called out for assistance. Introductions were made, then consulted with patient to assess needs related to . Mother led the conversation with had just finished 15 minutes on each breast. is skin to skin upright on mothers chest content. Education given to the parents of how to visualize the suckling (with good rocking jaw motion), swallows (dropping of the lower jaw) and how to listen for drinking at the breast (the ka sound) and father of baby voiced visualizing seeing the infant swallowing. Infant was able to maintain latch without pain to mother protecting the nipple with optimal positioning, latching, and protecting the milk supply with consistent and/or pumping. Mother states this last breastfeed was the first breastfeed since was born almost 24 hours ago. A breast pump was brought to patient last night to protect and build a milk supply. Mother states she pumped once for 10 minutes and didn't get anything and hasn't pumped since. Reiterated consistent breast stimulation to build, protect the milk supply, to maintain, and prevent engorgement, plugged ducts, or mastitis. Mother is anxious regarding know how much is getting from the breast and father of baby instructed mother by watching for swallows. Father of baby voices quality knowledge of understanding effectiveness and milk production. Instructions given on cleaning, care, usage, that there should be no pain, pumping schedule for milk production, collection, and storage of human milk. Mother was encouraged to consistently pump if infant is getting a bottle without for stretching/stimulation for adequate milk production every 3 hours (8 times in 24 hours) 1-2 times at night. Parents are encouraged to record the pumping schedule on the feeding sheet.?Reinforced understanding of milk production, transition of milk, signs of adequate intake, transition of stool, prevention/relief of engorgement, plugged ducts, mastitis, responsive watching for feeding cues, the different methods of stimulating infant to breastfeed 1-3 hours after the start of the last feeding. Mother voiced understanding of the education shared. Inpatient/outpatient resources provided with name written on the communication board and the mom/baby guide. Parents voiced understanding of information and will call if there is a request for assistance. Instructed parents to supplement as ordered by Dr. Aguilar as infant is on D10 IVF's and to call for Primary RN if doesn't take the 15mls from the bottle. Reported to the Primary RN.
[2023-09-18 16:00] VITALS: BP 137/88; PULSE 85; RESP 18; TEMP 36.6; O2SAT 100
[2023-09-18 21:00] VITALS: BP 155/99; PULSE 86; RESP 20; TEMP 36.4; O2SAT 100
[2023-09-19 00:50] VITALS: BP 144/91; PULSE 80
[2023-09-19 03:18] VITALS: BP 152/94; PULSE 74
[2023-09-19] MEDS: IBUPROFEN 600 MG TABLET PO ×4 (03:30→21:15)
[2023-09-19 05:31] LABS: Hematocrit 30.7 % (37.0-47.0); Hemoglobin 9.2 g/dL (12.0-15.0); Mean Corpuscular Volume 80.2 fl (80-100); Mean Platelet Volume 12.1 fl (7.4-10.4); Platelet Count Result 207 k/mm3 (150-375); Red Blood Count 3.83 M/mm3 (4.2-5.4); Red Cell Distribution Width 16.7 % (11.5-14.5); White Blood Count 15.3 K/mm3 (4.5-10.0)
[2023-09-19 05:48] LABS: Alanine Aminotransferase 25 U/L (6-35); Albumin Level 2.7 g/dL (3.5-5.1); Alkaline Phosphatase 140 U/L (38-126); Anion Gap 4 mmol/L (8-16); Aspartate Amino Transferase 54 U/L (14-36); Bilirubin,Total 0.2 mg/dL (0.2-1.3); Blood Urea Nitrogen 8 mg/dL (7-17); Carbon Dioxide 23 mmol/L (22-30); Chloride 110 mmol/L (98-107); Estimated CRCL calculation 76 ml/min; Estimated Glomerular Filt Rate > 60; Glucose 70 mg/dL (65-110); Potassium 3.6 mmol/L (3.4-5.0); Sodium 137 mmol/L (137-145)
[2023-09-19 07:15] VITALS: BP 139/93; PULSE 80; RESP 18; TEMP 36.5; O2SAT 100
[2023-09-19] MEDS: NIFEdipine 30 MG TAB.ER.24 PO ×2 (07:30→19:50)
--- NOTE | 2023-09-19 07:44 | P.PNOB_ITS ---
OB - PN: Subj Subjective Date/time seen: 09/19/23 07:44 Narrative: PPD#2 Alis reports doing better today, still having sinus pain/body aches. 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 Her pain is controlled. She is tolerating regular diet, voiding, passing gas, and ambulating without issues. She is bottle feeding, but attempting to pump. She would like her son circumcised-- but he is still on D10 and was also diagnosed with covid infection. No PEC symptoms. OB - PN: Obj Data Labs 09/19/23 03:12 09/19/23 03:12 Labs: Laboratory Results - last 24 hr 09/19/23 03:12 WBC 15.3 H RBC 3.83 L Hgb 9.2 L Hct 30.7 L MCV 80.2 MCH 24.0 L MCHC 30.0 L RDW 16.7 H Plt Count 207 MPV 12.1 H Sodium 137 Potassium 3.6 Chloride 110 H Carbon Dioxide 23 Anion Gap 4 L BUN 8 Creatinine 0.80 Estim Creat Clear Calc 76 Estimated GFR > 60 Glucose 70 Calcium 8.0 L Total Bilirubin 0.2 AST 54 H ALT 25 Alkaline Phosphatase 140 H Total Protein 6.0 L Albumin 2.7 L OB - PN A/P Plan day: 2 Plan: routine care Comments: - BPs noted to be persistently 150s overnight; nifedipine 30mg started today - will continue to monitor BPs; possible discharge home tomorrow Time Spent With Patient Time: Total time spent is greater than 50% in coordination of care (as documented) at patient's floor/unit and/or counseling patient: Review of Systems Constitutional: Constitutional: Denies chills, Denies fever(s) and Denies headache(s) Eyes: Eyes: Denies change in vision ENT: Denies dizziness and Denies headache(s) Cardiovascular: Cardiovascular: Denies chest pain, Denies palpitations and Denies dyspnea Respiratory: Respiratory: Denies cough and Denies dyspnea Gastrointestinal: Gastrointestinal: Denies nausea and Denies vomiting Neurologic: Denies dizziness and Denies headache(s) Endocrine: Endocrine: Denies palpitations Exam Const: General: cooperative, comfortable and no acute distress Orientation/consciousness: patient oriented x3 Resp: Effort & Inspection: normal respiratory effort Auscultation: clear to auscultation bilaterally Cardio: Rate: regular rate GI: Inspection: non-distended GI Palp: No abdominal tenderness and Yes Soft to palpation Auscultation: normal bowel sounds : Other: fundus firm Skin: General skin exam: normal color Neuro: General: patient oriented x3 Extrem: General: normal to inspection Psych: Appearance: grossly normal Affect: normal affect Attitude: cooperative
[2023-09-19] MEDS: guaiFENesin 12 HR 600 MG TABCR PO ×2 (09:18→21:15)
[2023-09-19] MEDS: POLYSACCHARIDE IRON COMPLEX 150 MG CAPSULE PO ×2 (09:18→16:28)
[2023-09-19] MEDS: DOCUSATE SODIUM 100 MG CAPSULE PO ×2 (09:18→16:28)
[2023-09-19] MEDS: MULTIVIT/MIN/PREN/FOL AC/IRON TABLET 1 TAB PO (09:18)
[2023-09-19 10:35] VITALS: BP 138/93
[2023-09-19 16:25] VITALS: BP 141/99; PULSE 113; RESP 20; TEMP 36.8; O2SAT 100
[2023-09-19 20:00] VITALS: BP 143/90; PULSE 102; RESP 18; TEMP 36.7
[2023-09-20 00:20] VITALS: BP 144/90
[2023-09-20 04:20] VITALS: BP 142/92; PULSE 95; TEMP 36.5
[2023-09-20] MEDS: IBUPROFEN 600 MG TABLET PO (04:25)
[2023-09-20 07:30] VITALS: BP 130/97; PULSE 86; RESP 18; TEMP 36.8; O2SAT 100
[2023-09-20] MEDS: POLYSACCHARIDE IRON COMPLEX 150 MG CAPSULE PO (07:40)
[2023-09-20] MEDS: guaiFENesin 12 HR 600 MG TABCR PO (07:41)
[2023-09-20] MEDS: NIFEdipine 30 MG TAB.ER.24 PO ×2 (07:41→18:23)
[2023-09-20] MEDS: MULTIVIT/MIN/PREN/FOL AC/IRON TABLET 1 TAB PO (07:41)
[2023-09-20] MEDS: DOCUSATE SODIUM 100 MG CAPSULE PO (07:41)
[2023-09-20 12:00] VITALS: BP 145/92
--- NOTE | 2023-09-20 12:34 | PM.OBDSVD ---
DS: Admitting Diagnosis Discharge Date 09/20/23 Admitting Diagnosis Induction of labor Pre-eclampsia w/o severe features A1GDM AMA DS: Discharge Diagnosis Discharge Diagnosis (1) Vacuum-assisted vaginal delivery: Code(s): Z37.9 - Outcome of delivery, unspecified Status: Acute (2) COVID-19 virus infection: Code(s): U07.1 - COVID-19 Status: Acute (3) Pre-eclampsia: Qualifiers: Trimester: third trimester Qualified Code(s): O14.93 - Unspecified pre-eclampsia, third trimester Code(s): O14.90 - Unspecified pre-eclampsia, unspecified trimester Status: Acute OB - DS: Summary OB Procedures : NST, PIH Mgmt and Ultrasound OB Procedures Intrapartum: Vacuum extraction OB Procedures: : None Peripartum Data Infant Delivery Method: Assisted Delivery Laceration Description: Perineal - 1st Degree complications: none 1: Gender: Male Disposition of : home Status at Discharge Functional status at discharge: independent ambulation Overall status at discharge: patient is back to baseline Time Spent with Patient Time attestation: Total time spent providing and/or coordinating discharge services: Exam Const: General: cooperative, healthy appearing, comfortable and no acute distress Orientation/consciousness: patient oriented x3 Resp: Effort & Inspection: normal respiratory effort Auscultation: clear to auscultation bilaterally Cardio: Rate: regular rate GI: Inspection: non-distended GI Palp: No abdominal tenderness and Yes Soft to palpation Auscultation: normal bowel sounds : Other: fundus firm Skin: General skin exam: normal color Neuro: General: patient oriented x3 Extrem: General: normal to inspection Psych: Appearance: grossly normal Affect: normal affect Attitude: cooperative DS: Data Data Completed and Pending Pending studies at discharge: Pending at discharge 09/18/23 07:36 Surgical [PTH] Routine Labs on day of discharge: Labs from last 24 hours 09/18/23 05:04 WBC 19.9 H RBC 3.81 L Hgb 9.3 L Hct 30.5 L MCV 80.1 MCH 24.4 L MCHC 30.5 L RDW 16.0 H Plt Count 204 MPV 11.8 H Sodium 128 L Potassium 3.6 Chloride 106 Carbon Dioxide 18 L Anion Gap 4 L BUN 8 Creatinine 0.80 Estim Creat Clear Calc 76 Estimated GFR > 60 Glucose 66 Calcium 7.6 L Total Bilirubin 0.3 AST 52 H ALT 20 Alkaline Phosphatase 138 H Total Protein 5.0 L Albumin 2.6 L Discharge Plan Discharge Attending physician on discharge: Katherin Acevedo Discharging Clinician: Katherin Acevedo Anticipated Discharge Date/Time: 09/20/23 12:15 Patient Disposition: Home, Self-Care Activity: may shower and pelvic rest Diet: as tolerated and regular Patient Instructions: Antibiotic Form, Vaginal Delivery (DC) Stand Alone Forms: General Discharge Information Follow-up/Referrals: Katherin Acevedo MD [Physician] - 1 Week (for BP check; 4 wks for PP visit) Discharge Medications: New acetaminophen 500 mg Tablet 1,000 mg PO Q6H PRN (Reason: Mild Pain (1-3) Or Headache) Qty: 60 0RF docusate sodium 100 mg Capsule 100 mg PO BID PRN (Reason: Constipation) Qty: 60 0RF ibuprofen 600 mg Tablet 600 mg PO Q6H PRN (Reason: Cramping) Qty: 40 0RF nifedipine [Procardia XL] 30 mg Tablet Extended Release 24hr 30 mg PO Q12H 30 Days Qty: 60 1RF Continued Classic 28 mg iron- 800 mcg tablet 1 tablet PO DAILY Discontinued aspirin [Adult Low Dose Aspirin] 81 mg tablet,delayed release (DR/EC) 81 mg PO DAILY Date of admission: 09/16/23 16:54 Primary Care Provider: Jean Preciado Admitting Provider: Katherin Acevedo Attending physician on admission: Katherin Acevedo Condition: Stable
[2023-09-20 15:20] VITALS: BP 145/95
--- NOTE | 2023-09-20 15:46 | PC.NURSE ---
Patient viewed the discharge video Mother & Baby Care, The First Two Weeks . Patient was given the opportunity and encouraged to ask questions. Patient verbalized understanding of information shared and has been given the mother/baby guide for home reference.
[2023-09-23 11:33] VITALS: BP 128/79; PULSE 77; RESP 18; TEMP 36.7; O2SAT 99
== END 2023-09-20 18:25 | disposition home or self-care (01) | DRG 805 ==
LOC: ANHLDR 16:59 → ANHOB2 09-17 20:06
PROVIDERS: Admitting Provider Obstetrics & Gynecology; PCP Internal Medicine; Visit Provider Obstetrics & Gynecology
DX: O14.04 Mild to moderate pre-eclampsia, complicating childbirth (principal); U07.1 COVID-19; Z37.0 Single live birth; O98.52 Other viral diseases complicating childbirth; Z3A.37 37 weeks gestation of pregnancy; O70.0 First degree perineal laceration during delivery; O24.420 Gestational diabetes mellitus in childbirth, diet controlled; O75.81 Maternal exhaustion complicating labor and delivery; O36.8330 Maternal care for abnormalities of the fetal heart rate or rhythm, third trimester, not applicable or unspecified
CPT/HCPCS: 36415; 59025; 80053; 82948; 84550; 85025; 85027; 86592; 86850; 86900; 86901; 87636; 87651; 88307; A9270; J2590; J2795; J3010; J7120; J7121

== ENCOUNTER 2023-11-04 09:41 | Outpatient (CLI) | payer BC, SELFPAY ==
--- NOTE | 2023-11-04 09:53 | ECG_ITS ---
SEE SCANNED COPY FOR CONFIRMED REPORT MTDD
== END 2023-11-04 09:42 | disposition home or self-care (01) ==
LOC: ANHLAB 09:42
PROVIDERS: PCP Internal Medicine; Visit Provider Obstetrics & Gynecology
DX: O14.90 Unspecified pre-eclampsia, unspecified trimester (principal); R07.9 Chest pain, unspecified; Z3A.00 Weeks of gestation of pregnancy not specified
CPT/HCPCS: 93005